=== PATIENT | female | born 1940 | race Caucasian/White ===

== ENCOUNTER 2017-10-31 10:42 | Observation (INO) | payer OTHER, MEDICARE ==
[~2017-10-31] VITALS: Ht 177.8 cm; Wt 82.5 kg
[~2017-10-31 10:42] MED LIST: ASPIRIN81 M2 PO; CALCIUM 500 MG1 EACH PO; CO Q-10100 MG PO; COUMADIN5 MG PO; DIOVAN320 MG PO; FISH OIL 1,0001 EAC7 PO; FUROSEMIDE40 MG PO; LEXAPRO10 MG PO; LEXAPRO5 MG PO; LIPITOR10 MG PO; LOPRESSOR50 MG PO; MULTIVITAMIN1 EAC2 PO; NIACIN500 M1 PO; NORVASC5 MG PO; OMEPRAZOLE40 MG PO; SIMVASTATIN40 M1 PO; VITAMIN D1000 UNIT PO; VITAMIN D31000 UNI2 PO; Vicodin,Norco 5/325 PO; WARFARIN SODIUM5 MG PO
[2017-10-31 11:14] LABS: HEMOGLOBIN 13.5 G/DL (11.9-15.5); MCHC 32.9 G/DL (30.0-36.0); MCV 94.3 FL (83-99); PLATELET COUNT 165 K/uL (156-360); RBC DIS.WIDTH-CV 12.8 % (11.8-14.6); RBC DIS.WIDTH-SD 44.5 % (39-53); RED BLOOD COUNT 4.35 M/uL (3.80-5.20); WHITE BLOOD COUNT 5.2 K/uL (4.1-10.2)
[2017-10-31 11:25] LABS: CHLORIDE 106 mEq/L (99-109); POTASSIUM 4.3 mEq/L (3.7-5.4); SODIUM 139 mEq/L (136-147)
[2017-10-31 11:27] LABS: GLUCOSE 107 mg/dL (70-99)
[2017-10-31 11:31] LABS: CREATININE 0.8 mg/dL (0.6-1.3); GFR ESTIMATE (CALCULATED) > 59 mL/min/
[2017-10-31 11:32] LABS: UREA NITROGEN (BUN) 15 mg/dL (9-23)
[2017-10-31 11:35] LABS: TROP-I INTERPRETATION NEGATIVE; TROPONIN-I < 0.01 ng/mL (0.0-0.30)
[2017-10-31] MEDS ORDERED: BENICAR40 MG PO (14:21)
[2017-10-31] MEDS ORDERED: BIOTIN1000 MCG PO (14:23)
[2017-10-31] MEDS ORDERED: ZANTAC150 MG PO (14:24)
[2017-10-31] MEDS ORDERED: SINGULAIR10 MG PO (14:26)
[2017-10-31 16:15] VITALS: BP 141/75
[2017-10-31 17:40] LABS: TROP-I INTERPRETATION NEGATIVE; TROPONIN-I < 0.01 ng/mL (0.0-0.30)
[2017-10-31 18:55] LABS: INTER. NORMALIZED RATIO 2.6
[2017-10-31 19:39] VITALS: BP 100/55
[2017-10-31 23:28] LABS: TROP-I INTERPRETATION NEGATIVE; TROPONIN-I < 0.01 ng/mL (0.0-0.30)
[2017-10-31 23:39] VITALS: BP 95/52
[2017-11-01 05:17] VITALS: BP 118/71
[2017-11-01 05:35] LABS: INTER. NORMALIZED RATIO 2.8
[2017-11-01 07:55] VITALS: BP 127/59
[2017-11-01 10:44] LABS: HEMOGLOBIN A1c (GLYCOHEMOGLOB) 5.7 % (Below 5.7)
[2017-11-01 11:25] VITALS: BP 136/70
== END 2017-11-01 12:26 | disposition home or self-care (01) ==
LOC: EME 10:42 → EDOF 14:39 → 4SOUTH 14:39 → EDOF 14:39 → ENRESERV 14:48 → 4SOUTH 15:59
PROVIDERS: Hospitalist; Physician Assistant
DX: R07.9 Chest pain, unspecified (principal); I10 Essential (primary) hypertension; I25.10 Atherosclerotic heart disease of native coronary artery without angina pectoris; Z95.5 Presence of coronary angioplasty implant and graft; I48.91 Unspecified atrial fibrillation; Z79.01 Long term (current) use of anticoagulants; E78.5 Hyperlipidemia, unspecified; K21.9 Gastro-esophageal reflux disease without esophagitis; Z86.73 Personal history of transient ischemic attack (TIA), and cerebral infarction without residual deficits; Z87.891 Personal history of nicotine dependence; Z88.1 Allergy status to other antibiotic agents; Z88.2 Allergy status to sulfonamides; Z96.651 Presence of right artificial knee joint; Z82.49 Family history of ischemic heart disease and other diseases of the circulatory system; Z79.82 Long term (current) use of aspirin
CPT/HCPCS: 71045; 71046; 80048; 83036; 84484; 85027; 85610; 93005; 99281; 99285; G0378